=== PATIENT | male | born 1965 | race Two or more races ===

== ENCOUNTER 2023-03-13 10:19 | Outpatient (CLI) | payer MEDICAID ==
[~2023-03-13 10:19] MED LIST: LOP25T PO
== END 2023-03-13 23:59 | disposition home or self-care (01) ==
LOC: CARD DIAG 10:19
PROVIDERS: ATTEND Specialist
DX: I34.81 Nonrheumatic mitral (valve) annulus calcification (principal); R00.1 Bradycardia, unspecified
CPT/HCPCS: 93306